=== PATIENT | male | born 1960 | race Caucasian/White ===

== ENCOUNTER 2025-01-19 02:02 | Emergency (ER) | payer OTHER ==
[2025-01-19 03:21] LABS: Platelet Count 98 10x3/uL (150-450)
[2025-01-19 03:22] LABS: #Basophils 0.01 10x3/uL (0.0-0.2); #Eosinophils 0.16 10x3/uL (0.0-0.5); #Monocytes 0.73 10x3/uL (0.0-1.1); #Neutrophils 3.54 10x3/uL (1.5-8.4); %Basophils 0.2 % (0.0-2.0); %Eosinophils 2.8 % (0.0-6.0); %Lymphocytes 20.4 % (18.0-47.0); %Monocytes 12.9 % (0.0-10.0); %Neutrophils 62.8 % (40.0-75.0); Hematocrit 38.4 % (38.8-50.0); Hemoglobin 13.1 g/dL (13.5-17.5); Mean Corpuscular Hemoglobin 29.7 pg (27.0-33.0); Mean Corpuscular Volume 87.1 fL (81.2-95.1); Red Blood Cell (RBC) Count 4.41 10x6/uL (4.32-5.72); White Blood Cell (WBC) Count 5.64 10x3/uL (3.5-10.5)
[2025-01-19 03:52] LABS: Platelet Adequacy Comment Appears Decreased
[2025-01-19 04:05] LABS: ALT (SGPT) 33 U/L (Less than 45); AST (SGOT) 25 U/L (11-34); Albumin 3.9 g/dL (3.1-4.5); Alkaline Phosphatase 67 U/L (40-110); Anion Gap 15 mmol/L (10-20); BUN (Urea Nitrogen) 20 mg/dL (8.4-25.7); Bilirubin, Total 0.2 mg/dL (0.3-1.2); Calc. Creatinine Clearance 0 mL/min (70-130); Calcium 8.5 mg/dL (7.8-10.44); Carbon Dioxide 22 mmol/L (23-31); Chloride 106 mmol/L (98-107); Globulin 3.0 g/dL (2.4-3.5); Glucose 103 mg/dL (80-115); Lipase 35 U/L (8-78); Magnesium 2.1 mg/dL (1.6-2.6); Potassium 3.8 mmol/L (3.5-5.1); Sodium 139 mmol/L (136-145)
[2025-01-19 04:10] LABS: Troponin I Less than 0.010 ng/mL (< 0.028)
== END 2025-01-19 11:36 ==
LOC: CSHERS 02:02
DX: R07.9 Chest pain, unspecified (principal); R00.1 Bradycardia, unspecified; I25.10 Atherosclerotic heart disease of native coronary artery without angina pectoris; K21.9 Gastro-esophageal reflux disease without esophagitis; I10 Essential (primary) hypertension; J44.9 Chronic obstructive pulmonary disease, unspecified; Z79.899 Other long term (current) drug therapy; Z79.51 Long term (current) use of inhaled steroids; Z79.82 Long term (current) use of aspirin
CPT/HCPCS: 80053; 83690; 83735; 83880; 84484; 85025; 93005; 93010